=== PATIENT | female | born 1970 | race Caucasian/White ===

== ENCOUNTER 2017-04-06 21:22 | Emergency (ER) | payer MEDICAID ==
[~2017-04-06] VITALS: Ht 170.2 cm; Wt 108.5 kg
[~2017-04-06 21:22] MED LIST: [UNRECOGNIZED DRUG - REMARK]
[2017-04-06] MEDS ORDERED: HYDROcodone/APAP 5/325 TABLET PO STA ×2 (21:52→22:01)
[2017-04-06] MEDS ORDERED: HYDROcodone/APAP 5/325 TABLET ONE (22:04)
[2017-04-06 22:21] VITALS: BP 146/96
== END 2017-04-07 01:06 | disposition home or self-care (01) ==
LOC: ED 22:29
DX: I10 Essential (primary) hypertension (principal); F17.210 Nicotine dependence, cigarettes, uncomplicated
CPT/HCPCS: 99283

== ENCOUNTER 2018-06-05 11:03 | Emergency (ER) | payer MEDICAID ==
[~2018-06-05] VITALS: Ht 170.2 cm; Wt 100.1 kg
[2018-06-05 11:08] VITALS: BP 159/111
== END 2018-06-05 14:48 | disposition left against medical advice (07) ==
LOC: ED 14:37
DX: A53.9 Syphilis, unspecified (principal); R21 Rash and other nonspecific skin eruption
CPT/HCPCS: 99281

== ENCOUNTER 2019-07-15 04:17 | Emergency (ER) | payer MEDICAID ==
[~2019-07-15] VITALS: Ht 171.4 cm; Wt 121.2 kg
[2019-07-15] MEDS ORDERED: ACETAMINOPHEN 325 MG TABLET PO ONE (05:00)
[2019-07-15 05:35] LABS: BASOPHILS # (AUTO) 0.04 x10^3/uL (0-0.1); BASOPHILS % (AUTO) 1 % (0-1); EOSINOPHILS % (AUTO) 4 % (1-7); LYMPHOCYTES # (AUTO) 2.19 x10^3/uL (1-3.4); LYMPHOCYTES % (AUTO) 27 % (22-44); MD NO; MEAN CORPUSCULAR HEMOGLOBIN 28.3 pg (27.0-34.8); MEAN CORPUSCULAR HGB CONC 32.7 g/dL (32.4-35.8); MEAN CORPUSCULAR VOLUME 86.5 fL (80-100); MONOCYTES # (AUTO) 0.89 x10^3/uL (0.2-0.8); MONOCYTES % (AUTO) 11 % (2-9); NEUTROPHILS # (AUTO) 4.58 x10^3/uL (1.8-6.8); NEUTROPHILS % (AUTO) 57 % (42-75); PLATELET COUNT 310 x10^3/uL (130-400); RED BLOOD COUNT 4.35 x10^6/uL (3.82-5.3); RED CELL DISTRIBUTION WIDTH 13.6 % (9.6-15.2)
[2019-07-15 05:36] VITALS: BP 130/78
[2019-07-15 05:39] LABS: ALBUMIN 3.5 g/dL (3.4-5.0); ANION GAP 8 mmol/L (5-15); CALCIUM 9.2 mg/dL (8.5-10.1); CHLORIDE 105 mmol/L (98-107); CREATININE 1.69 mg/dL (0.55-1.02)
[2019-07-15] MEDS ORDERED: ACETAMINOPHEN 325 MG TABLET ONE (05:53)
--- NOTE | 2019-07-15 05:58 | NUR ---
RESTING ON GURNEY, NO ACUTE DISTRESS. VSS. CALL LIGHT WITHIN REACH.
[2019-07-15] MEDS ORDERED: POTASSIUM CHLORIDE 20 MEQ TAB.ER.PRT PO ONE (06:00)
[2019-07-15] MEDS ORDERED: POTASSIUM CHLORIDE 20 MEQ TAB.ER.PRT ONE (06:05)
== END 2019-07-15 06:27 | disposition home or self-care (01) ==
LOC: ED 05:35
DX: M79.661 Pain in right lower leg (principal); E87.6 Hypokalemia; I10 Essential (primary) hypertension
CPT/HCPCS: 36415; 80048; 82040; 85025; 99284